=== PATIENT | female | born 1945 | race Caucasian/White ===

== ENCOUNTER → 2020-08-21 | Outpatient (CLI) | payer MEDICARE ==
[~2020-08-21] MED LIST: Advil200 M1 PO; BUPR100ER PO; CALCAVITDA; GABA600 PO; KRILL OIL500 MG PO; VITAMIN D400 UNI1
== END | disposition home or self-care (01) ==
LOC: LAB SHORT 15:15 → PLD 15:15
DX: D22.61 Melanocytic nevi of right upper limb, including shoulder (principal); D48.5 Neoplasm of uncertain behavior of skin
CPT/HCPCS: 88305

== ENCOUNTER → 2021-02-18 | Outpatient (CLI) | payer MEDICARE | END | disposition home or self-care (01) | LOC: LAB 11:38 → LAB SHORT 11:38 | DX: D48.5 Neoplasm of uncertain behavior of skin (principal) | CPT/HCPCS: 88305 ==

== ENCOUNTER → 2023-08-18 | Outpatient (CLI) | payer MEDICARE | END | disposition home or self-care (01) | LOC: LAB 10:10 → LAB SHORT 10:10 | DX: R35.1 Nocturia (principal) | CPT/HCPCS: 87086 ==